=== PATIENT | female | born 2000 | race Two or more races ===

== ENCOUNTER 2020-06-20 20:21 | Emergency (ER) | payer SELFPAY ==
[~2020-06-20] VITALS: Ht 160 cm; Wt 68.2 kg
--- NOTE | 2020-06-20 21:12 | PHYS DOC ---
Past Medical History Past Medical History: No Pertinent History Past Surgical History: No Surgical History Smoking Status: Never Smoker Alcohol Use: Occasionally General Adult EDM: Chief Complaint: KNEE INJURY HPI: HPI: Patient is a 19 year old female with no significant past medical histories presents for right knee injury. Patient states that yesterday she she fell at home and her medial right knee produced a loud pop. She did not experience any pain right away and just went to bed without any management. After she lied down patient realized she cannot fully extend her right leg. And there are focal tenderness on the medial side of the knee as well as the posterior knee when patient was sleeping on either side of her body. Today patient can no longer walk or bear weight on the right knee. Patient reports that she has minimum pain at rest and has not taken any medication to alleviate the pain. Movement and touching of the right knee worsen the pain. She denies any erythema or edema of the right knee. Patient denies any fever and chills, chest pain, shortness of air, and abdominal pain. Patient is the main historian. Review of Systems: Review of Systems: Review of systems: Constitutional symptoms- No fever, no chills. Eyes- No Discharge, No Visual Loss Respiratory symptoms- No shortness of breath, No wheezing, No Dyspnea on Exertion Cardiovascular Systems; No chest pain, No Palpitations, No syncope Gastrointestinal symptoms: NO abdominal pain, no nausea, no vomiting or diarrhea. Genitourinary symptoms: No dysuria. Musculoskeletal symptoms: No back pain reports right medial knee pain, posterior knee pain. NEUROLOGICAL Symptoms: No headache, no generalized weakness; No focal Weakness Heart Score: C/O Chest Pain: No Risk Factors: Risk Factors: DM, Current or recent (<one month) smoker, HTN, HLP, family history of CAD, obesity. Risk Scores: Score 0 - 3: 2.5% MACE over next 6 weeks - Discharge Home Score 4 - 6: 20.3% MACE over next 6 weeks - Admit for Clinical Observation Score 7 - 10: 72.7% MACE over next 6 weeks - Early Invasive Strategies Current Medications: Current Medications Medications (Trade) Dose Ordered Sig/Randy Start Time Stop Time Status Last Admin Dose Admin Tramadol HCl (Ultram) 50 mg 1X ONCE 06/20/20 21:30 06/20/20 21:31 Allergies: Allergies: Allergies Coded Allergies Type Severity Reaction Last Updated Verified ibuprofen Allergy Intermediate RASH, SWOLLEN FACE 06/20/20 Yes Physical Exam: PE: General: alert, no acute distress. Skin: warm, dry and intact. Head:: Normocephalic, atraumatic. Neck: Trachea midline. Eyes: EOMI, Normal conjunctiva, No drainage CARDIOVASCULAR: Regular rate and rhythm RESPIRATORY: No respiratory distress Back: Full range of motion. MUSCULOSKELETAL: Right medial knee tenderness upon palpation, passive extension elicits severe tenderness, patient has severe pain with tapping on the patella tendon, positive valgus test. GASTROINTESTINAL: Abdomen soft without rebound or guarding. NEUROLOGICAL: Alert and noted to person, place and time. No neurological deficits observed Psychiatric: Cooperative. Normal judgment Current Patient Data: Labs: Laboratory Tests Test 06/20/20 20:35 POC Urine HCG, Qualitative Hcg negative (Negative) Vital Signs: Vital Signs Date Time Temp Pulse Resp B/P (MAP) Pulse Ox O2 Delivery O2 Flow Rate FiO2 06/20/20 20:25 98.4 87 20 131/85 (100) 100 Room Air 98.4 EKG: EKG: [] Radiology/Procedures: Radiology/Procedures: [] Impression: TECHNIQUE: Frontal, lateral and oblique views of the right knee Comparisons: None FINDINGS: Bone mineralization is normal. No acute or healed fractures. Soft tissues are unremarkable. Joint spaces are well-maintained. IMPRESSION: No acute osseous abnormality. Course & Med Decision Making: Course & Med Decision Making Pertinent Labs and Imaging studies reviewed. (See chart for details) [] X-ray negative for acute fracture. Patient placed in a knee immobilizer offered crutches. Patient discharged home with prescription and Ultram. Patient advised to follow-up with orthopedics Benita Disclaimer: Benita Disclaimer: This electronic medical record was generated, in whole or in part, using a voice recognition dictation system. Departure Departure Impression: Primary Impression: Knee pain Disposition: 01 DC HOME SELF CARE/HOMELESS Condition: STABLE Referrals: NO PCP (PCP) TOÑO LAMA MD Patient Instructions: Knee Pain Scripts Tramadol Hcl (ULTRAM) 50 Mg Tablet 50 MG PO Q6-8HRS PRN for PAIN for 10 Days, #14 TAB 0 Refills Prov: JAZMYNKIKO China CASTILLO 06/20/20 JAZMYNKIKO China DO Jun 20, 2020 21:12
[2020-06-20] MEDS ORDERED: traMADol 50 MG TABLET PO ONE (21:30)
--- NOTE | 2020-06-20 22:33 | RAD ---
Exam: Right knee 3 views INDICATION: Right knee pain after fall this a.m. TECHNIQUE: Frontal, lateral and oblique views of the right knee Comparisons: None FINDINGS: Bone mineralization is normal. No acute or healed fractures. Soft tissues are unremarkable. Joint spa pedro are well-maintained. IMPRESSION: No acute osseous abnormality. Electronically signed by: Ever Hroton MD (06/20/2020 10:31 PM) [facility]
[2020-06-20] MEDS ORDERED: TRAM-48 PO (22:42)
[2020-06-20 22:51] VITALS: BP 106/75
== END 2020-06-20 22:51 | disposition home or self-care (01) ==
LOC: ER 20:21
DX: M25.561 Pain in right knee (principal); Z88.8 Allergy status to other drugs, medicaments and biological substances; W18.39XA Other fall on same level, initial encounter; Y93.89 Activity, other specified; Y92.89 Other specified places as the place of occurrence of the external cause; Y99.8 Other external cause status
CPT/HCPCS: 29505; 73562; 81025; 99283

== ENCOUNTER 2020-08-23 17:38 | Emergency (ER) | payer SELFPAY ==
[~2020-08-23] VITALS: Ht 160 cm; Wt 67.3 kg
[~2020-08-23 17:38] MED LIST: TRAM-48 PO
[2020-08-23 19:40] LABS: BILIRUBIN,URINE NEGATIVE (NEG); CLARITY,URINE CLOUDY; COLOR,URINE YELLOW; NITRITE,URINE NEGATIVE (NEG); PROTEIN,URINE NEGATIVE (NEG-TRACE); UROBILINOGEN,URINE 0.2 mg/dL (0.2 mg/dL)
[2020-08-23] MEDS ORDERED: ACETAMINOPHEN 325 MG TABLET. PO ONE (19:45)
[2020-08-23 19:48] LABS: AMORPHOUS SEDIMENT,UR PRESENT /HPF; BACTERIA,URINE FEW /HPF (0-FEW); RBC,URINE RARE /HPF (0-2)
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
[2020-08-23] MEDS ORDERED: TRAM50TA PO (20:36)
[2020-08-23 20:45] VITALS: BP 113/79
== END 2020-08-23 20:45 | disposition home or self-care (01) ==
LOC: ER 17:38
DX: S00.81XA Abrasion of other part of head, initial encounter (principal); R07.81 Pleurodynia; R11.0 Nausea; R42 Dizziness and giddiness; E03.9 Hypothyroidism, unspecified; Z88.8 Allergy status to other drugs, medicaments and biological substances; Y08.89XA Assault by other specified means, initial encounter; Y93.89 Activity, other specified; Y92.89 Other specified places as the place of occurrence of the external cause; Y99.8 Other external cause status
CPT/HCPCS: 70450; 70486; 71111; 72125; 81001; 81025; 87086; 87147; 99285-25

== ENCOUNTER 2020-10-08 19:53 | Emergency (ER) | payer SELFPAY ==
[~2020-10-08] VITALS: Ht 160 cm; Wt 76.4 kg
[~2020-10-08 19:53] MED LIST changes: +TRAM50TA PO
--- NOTE | 2020-10-08 21:11 | PHYS DOC ---
Past Medical History Past Medical History: Anemia, Hypothyroid Past Surgical History: No Surgical History Smoking Status: Never Smoker Alcohol Use: Occasionally General Adult EDM: Chief Complaint: TOE PROBLEM HPI: HPI: Patient is a 20 year old female who presents to the ED today with moderate pain to the right great toe after cultures she was moving with the help splint fell on her right great toe. Patient states the pain is worse on weightbearing. She states she took Advil with no relief. Review of Systems: Review of Systems: Constitutional: Denies fever or chills. [] Musculoskeletal: Right great toe pain. Denies back pain Integument: Denies rash. [] Neurologic: Denies headache, focal weakness or sensory changes. [] Psychiatric: Denies depression or anxiety. [] Heart Score: C/O Chest Pain: N/A Risk Factors: Risk Factors: DM, Current or recent (<one month) smoker, HTN, HLP, family history of CAD, obesity. Risk Scores: Score 0 - 3: 2.5% MACE over next 6 weeks - Discharge Home Score 4 - 6: 20.3% MACE over next 6 weeks - Admit for Clinical Observation Score 7 - 10: 72.7% MACE over next 6 weeks - Early Invasive Strategies Allergies: Allergies: Allergies Coded Allergies Type Severity Reaction Last Updated Verified ibuprofen Allergy Intermediate RASH, SWOLLEN FACE 06/20/20 Yes Physical Exam: PE: Constitutional: Well developed, well nourished, no acute distress, non-toxic appearance. [] Skin: Warm, dry, no erythema, no rash. [] Back: No tenderness, no CVA tenderness. [] Extremities: Right great toenail with chronic fungal infection. Tenderness on the tip of the right great toe. Full range of motion to the right great toe. +2 right pedal pulse. Cap refill less than 2 seconds the right toes. Neurologic: Alert and oriented X 3, normal motor function, normal sensory function, no focal deficits noted. [] Psychologic: Affect normal, judgement normal, mood normal. [] Current Patient Data: Labs: Laboratory Tests Test 10/08/20 20:25 POC Urine HCG, Qualitative Hcg negative (Negative) Vital Signs: Vital Signs Date Time Temp Pulse Resp B/P (MAP) Pulse Ox O2 Delivery O2 Flow Rate FiO2 10/08/20 20:10 98.7 84 16 124/82 (96) 98 Room Air 98.7 EKG: EKG: [] Radiology/Procedures: Radiology/Procedures: [] Course & Med Decision Making: Course & Med Decision Making Pertinent Labs and Imaging studies reviewed. (See chart for details) This is a 20-year-old female patient presenting to the ED today with right great toe pain after a couch fell on it. Right foot x-rays interpreted by Dr. Baez are negative for any acute findings. Discharge to home. OTC pain relievers. Ice elevation. Follow-up with Ortho in 1 week Benita Disclaimer: Benita Disclaimer: This electronic medical record was generated, in whole or in part, using a voice recognition dictation system. Departure Departure Impression: Primary Impression: Contusion of toe of right foot Qualified Codes: S90.111A - Contusion of right great toe without damage to nail, initial encounter Additional Impression: Onychomycosis of great toe Disposition: HOME / SELF CARE / HOMELESS Condition: STABLE Referrals: NO PCP (PCP) follow up with your doctor for fungal toe infection DOROTHY CURTIS MD follow up in one week Patient Instructions: Contusion, [id number] Additional Instructions: You were seen for right great toe injury, your right foot x-rays are negative for any acute findings, try to ice and elevate the extremity. You can take [id number] Tylenol or Motrin for pain. Please follow-up with the provided orthopedic doctor or your own doctor in 1 week if pain persists KELSEA MERA APRN Oct 08, 2020 21:11
[2020-10-08 21:45] VITALS: BP 139/78
[2020-10-08] MEDS ORDERED: HYDROcodone/APAP 5/325MG 1 TAB TABLET PO ONE (22:00)
--- NOTE | 2020-10-09 00:47 | RAD ---
Right foot 3 views. HISTORY: Pain, dropped couch on foot 3 views were taken of the right foot. There is not evidence of an acute fracture or osseous abnormali ty. IMPRESSION: 1. No acute fracture noted in the right foot. Electronically signed by: Jorge Alberto Alvarez MD (10/09/2020 12:44 AM) [facility]
== END 2020-10-08 22:06 | disposition home or self-care (01) ==
LOC: ER 19:53
DX: S90.111A Contusion of right great toe without damage to nail, initial encounter (principal); B35.1 Tinea unguium; E03.9 Hypothyroidism, unspecified; Z86.2 Personal history of diseases of the blood and blood-forming organs and certain disorders involving the immune mechanism; Z88.6 Allergy status to analgesic agent; W20.8XXA Other cause of strike by thrown, projected or falling object, initial encounter; Y93.89 Activity, other specified; Y92.89 Other specified places as the place of occurrence of the external cause; Y99.8 Other external cause status
CPT/HCPCS: 73630; 81025; 99283